=== PATIENT | female | born 1965 | race Caucasian/White ===

== ENCOUNTER 2019-02-19 12:36 | Inpatient (IN) | payer OTHER ==
[~2019-02-19] VITALS: Ht 162.6 cm; Wt 56.7 kg
[~2019-02-19 12:36] MED LIST: CYMBALTA60 MG PO; NORCO 5-325 TA1 EACH PO; POTASSIUM20 PO; TRAZODONE HCL100 MG PO; WELLBUTRIN SR150 MG PO; ZOFRAN ODT4 MG PO
[2019-02-19 12:37] VITALS: BP 121/92
[2019-02-19 13:10] LABS: ABSOLUTE NEUTROPHILS 4.4 thou/uL (1.4-8.2); BASOPHILS 0.7 % (0.0-2.0); EOSINOPHILS 0.4 % (0.0-3.0); HEMATOCRIT 40.5 % (37.0-47.0); LYMPHOCYTES 20.4 % (24.0-44.0); MCH 34.6 pg (26.0-34.0); MCHC 34.6 g/dL (28.0-37.0); MCV 99.9 fL (80.0-100.0); MONOCYTES 6.6 % (1.0-8.0); PLATELET COUNT 172 thou/uL (150-400); POLYS 71.9 % (36.0-66.0); RBC 4.05 mil/uL (4.20-5.00); RDW 12.2 % (10.5-14.5); WBC 6.1 thou/uL (4.0-11.0)
[2019-02-19 13:21] LABS: CALCIUM 9.7 mg/dL (8.5-10.1); CREATININE 0.7 mg/dL (0.6-1.0); POTASSIUM 4.1 mmol/L (3.5-5.1)
[2019-02-19 13:28] LABS: ALBUMIN 3.8 g/dL (3.4-5.0); TOTAL BILIRUBIN 0.5 mg/dL (<0.1-1.0)
--- NOTE | 2019-02-19 13:55 | EKG ---
[place] [address] [facility] [place] [address] ELECTROCARDIOGRAM REPORT Name: JAYSON WOLF [id number] ������������������ Admission: 02/19/19 ������������������ Attend Phys: Discharge: ������������������ Date of : 61 Report #: [id number] ����������������������������������������������������������������� [id number] THIS REPORT FOR: //name// [facility] ED Test Date: 2019-02-19 Test Time: 13:11:25 Pat Name: JAYSON WOLF Department: Room: Gender: F Tier In: : 1965 Requested By: Quyen Tejada Order Number: [id number] MD: Familia Ulloa Measurements Intervals [place] Rate: 109 P: 36 CA: 136 QRS: 47 QRSD: 95 T: 22 QT: 339 QTc: 457 Interpretive Statements Sinus tachycardia Probable left atrial enlargement Abnormal inferior Q waves No previous ECG available for comparison Electronically Signed On 02-19-2019 13:54:48 CDT by Familia Ulloa [email or web address] ��������������������������������������������� <ELECTRONICALLY SIGNED> ���������������������������������������� By: Familia Ulloa MD ��������������������������������������������� 02/19/19 1354 1311 1311 Familia Ulloa MD /MARLENE
[2019-02-19 15:24] LABS: AMP/METHAMP Negative (Negative); BARBITURATES Negative (Negative); BENZODIAZEPINES Negative (Negative); COCAINE Negative (Negative); METHADONE Negative (Negative); OPIATES Negative (Negative); PCP Negative (Negative)
[2019-02-19 16:45] LABS: TSH 0.703 uIU/mL (0.358-3.740)
[2019-02-19 16:46] VITALS: BP 133/99
[2019-02-19 17:05] VITALS: BP 128/86
[2019-02-19 17:50] VITALS: BP 167/84
[2019-02-19 19:25] VITALS: BP 126/88
[2019-02-20 03:35] VITALS: BP 115/86
--- NOTE | 2019-02-20 03:49 | NUR ---
PATIENT ALERT AND ORIENTED X4. DENIES PAIN. CWAH SCORES HAVE BEEN UNDER 9 MOST OF NIGHT. ATIVAN PO GIVEN X1. NO N/V NOTED, DENIES H/A OR ANY AUDIBLE OR VISUAL PROBLEMS. SLEPT MOST OF NIGHT.
[2019-02-20 06:06] LABS: HEMATOCRIT 34.2 % (37.0-47.0); MCH 34.2 pg (26.0-34.0); MCHC 33.7 g/dL (28.0-37.0); MCV 101.4 fL (80.0-100.0); RBC 3.37 mil/uL (4.20-5.00); RDW 12.4 % (10.5-14.5); WBC 4.8 thou/uL (4.0-11.0)
[2019-02-20 06:07] LABS: HEMOGLOBIN 11.5 gm/dL (12.0-15.0)
[2019-02-20 06:19] LABS: CALCIUM 8.5 mg/dL (8.5-10.1); CREATININE 0.5 mg/dL (0.6-1.0); MAGNESIUM 1.7 mg/dL (1.8-2.4); POTASSIUM 3.5 mmol/L (3.5-5.1)
[2019-02-20 07:50] VITALS: BP 138/91
[2019-02-20 11:09] VITALS: BP 136/99
--- NOTE | 2019-02-20 14:34 | NUR ---
ASSUMED PATIENT CARE AT 0715. A&OX4. LAST CIWA SCORE WAS 9. PATIENT TAKING PO ATIVAN OVER IV, STATES IT LASTS LONGER. INCONTINENT OF BOWEL IN THE BATHROOM. PATIENT TEARFUL WITH SIGNIFICANT OTHER. PSYCH ROUNDED TODAY AND CHANGED MED DOSES. PATIENT WAS PREVIOUSLY SOBER FOR 7 YEARS AND WOULD LIKE TO GET SOBER AGAIN. BED ALARM ON. ABLE TO MAKE NEEDS KNOWN. WORKING TOWARDS GOALS.
[2019-02-20 16:50] VITALS: BP 143/100
[2019-02-20 19:56] VITALS: BP 159/120
[2019-02-21 03:59] VITALS: BP 137/103
[2019-02-21 05:48] LABS: CALCIUM 8.4 mg/dL (8.5-10.1); CREATININE 0.5 mg/dL (0.6-1.0); MAGNESIUM 1.9 mg/dL (1.8-2.4); PHOSPHORUS 1.9 mg/dL (2.5-4.9); POTASSIUM 3.3 mmol/L (3.5-5.1)
--- NOTE | 2019-02-21 06:26 | NUR ---
PT AMBULATING TO BATHROOM WITH STANDBY ASSIST AND IS TOLERATING FAIR. DENIES PAIN. ATIVAN GIVEN FOR AGITATION. RESTING COMFORTABLY. NO NEEDS VOICED. CALL LIGHT WITHIN REACH. WILL CONTINUE TO PROVIDE FREQUENT OBSERVATION.
[2019-02-21 07:30] VITALS: BP 119/87
[2019-02-21 11:04] VITALS: BP 122/85
[2019-02-21 15:15] VITALS: BP 139/101
--- NOTE | 2019-02-21 15:55 | NUR ---
ASSUMED PATIENT CARE AT 0715. A&OX4 BUT HAS SOME SLIGHT CONFUSION. CIWAS HAVE BEEN FROM 4-9 TODAY. ATIVAN GIVEN. PATIENT STATED "WHY DO I HAVE TO STAY IF THE DOCTOR SAID I COULD GO?". PATIENT WAS INFORMED THAT THEY WOULD NOT BE DISCHARGED UNTIL TOMORROW OR THE NEXT DAY. PATIENT HAS NOT BEEN USING THE CALL LIGHT. BED ALARM ON. PATIENT VERY UNSTEADY. PATIENT SLOWLY PROGRESSING TOWARDS GOALS.
[2019-02-21 20:00] VITALS: BP 153/111
[2019-02-22 04:00] VITALS: BP 113/76
[2019-02-22 07:27] VITALS: BP 107/70
[2019-02-22 07:30] VITALS: BP 107/70
--- NOTE | 2019-02-22 08:00 | NUR ---
PT AMBULATING TO BATHROOM WITH STANDBY ASSIST AND IS TOLERATING FAIR. DENIES PAIN. RESTING COMFORTABLY. NO NEEDS VOICED. CALL LIGHT WITHIN REACH. WILL CONTINUE TO PROVIDE FREQUENT OBSERVATION.
[2019-02-22 11:30] VITALS: BP 125/90
--- NOTE | 2019-02-22 12:10 | NUR ---
ASSESSMENT: CM REVIEWED CHART AND MET WITH PATIENT AT THE BEDSIDE. PT WAS ADMITTED WITH ETOH WITHDRAWAL. PT REPORTS SHE CURRENTLY IS LIVING WITH HER BOYFRIEND IN A HOUSE. PT REPORTS A COUPLE OF STEPS TO ENTER THE HOME AND NO STEPS ONCE INSIDE. PT REPORTS SHE IS FULLY INDEPENDENT WITH ADLS AND AMBULATION. PT HAS A LONG HX OF ALCOHOL ABUSE AND REPORTS SHE HAD BEEN TO AN INPATIENT PSYCHIATRIC FACILITY TWICE WHILE LIVING IN [place] AND LAST TIME WAS ABOUT 1996. SHE STATES THAT SHE SEES AN OUTPATIENT PSYCHIAITRIST HERE IN BUT CANNOT RECALL THEIR NAME AT THIS TIME. PT REPORTS SHE HAS TRIED AA BEFORE AND WANTS TO GO TO AA ONCE DISCHARGED. CM PROVIDED PATIENT WITH ALCOHOL ABUSE RESOURCE SHEET. PT REPORTS NO FURTHER NEEDS FROM CM AT THIS TIME. CM WILL CONTINUE TO FOLLOW.
[2019-02-22 15:21] VITALS: BP 130/89
--- NOTE | 2019-02-22 18:30 | NUR ---
PATIENT CONT ON CIWA PRECAUTION. SHE HAS HAD ATIVAN THROUGH THE DAY TO CONTROL SYMPTOMS. SHE DENIES PAIN. AMBULATES WITH STAND BY ASSIST TO THE BATHROOM. SHE IS ALERT ORIENTED X4. WILL CONT TO MONITOR AND ASSIST NEEDED.
[2019-02-22 20:17] VITALS: BP 142/91
[2019-02-23 03:52] VITALS: BP 128/92
--- NOTE | 2019-02-23 06:42 | NUR ---
FOLLOWING POC FOR CIWA. CIWA'S AVERAGING 12-13, AND GIVING ORAL AND IV MEDICATIONS TO HELP WITH THE TREMORS AND WITHDRAW. PT CALLS APPROPRIATELY WITH CALL LIGHT. PT HAD A BOUT OF STRESS INCONTINENCE, NOC AND CASING CREW PUSHER CHANGED PT GOWN, CLEANED FEET AND PUT NEW SKIDPROOF SOCKS ON. VSS, AND HOURLY ROUNDING.
[2019-02-23 07:38] VITALS: BP 107/76
--- NOTE | 2019-02-23 10:44 | NUR ---
care of pt assumed this am @ ~0700. pt noted to be awake as she had just returned [place]. pt noted to be drowsy this am. denies soa, no pain and no n/v/d. pt w/ a poor to fair appetite for breakfast, menu given such that she can select a meal that appeals to her for lunch and dinner. pt denies wanting to sit in her chair for breakfast, but prefers the bed. pt noted to have a balanced, coordinated, but unsteady gait to the bthrm, use of gait belt and walker.
[2019-02-23 11:37] VITALS: BP 110/86
[2019-02-23 15:51] VITALS: BP 134/89
[2019-02-23 19:40] VITALS: BP 139/93
[2019-02-24 05:32] VITALS: BP 135/92
--- NOTE | 2019-02-24 06:14 | NUR ---
POC WITH CIWA ON Q4 BASIS. CIWA'S AVERAGING 10-14. ANIEXTY AND TREMORS ARE FAIRLY INTENSE. PT REFUSED SHOWER BUT ACCEPTED HAVING HER HAIR WASHED. POC WITH IVF AND HOURLY ROUNDING. PT STATES NO N/V.
[2019-02-24 07:53] VITALS: BP 120/83
[2019-02-24 11:28] VITALS: BP 123/85
[2019-02-24 16:06] VITALS: BP 146/103
[2019-02-24 19:07] VITALS: BP 127/82
--- NOTE | 2019-02-24 19:42 | NUR ---
care of pt assumed this am @ ~0700. pt verbalized that she is having a better day today than yesterday. pt is anticipating a discharge tomorrow. pt w/ increase appetite for food today. ivf's still infusing, much to the pt's dislike (dt the increased need to walk to the bthrm numerous times a day and noc). pt offered a shower but refused today. pt offered ambulation in the hallways but refused. pt visited by her boyfriend this afternoon.
[2019-02-25 03:47] VITALS: BP 111/76
--- NOTE | 2019-02-25 06:44 | NUR ---
PATIENT IS ALERT AND ORIENTED. PATIENT IS UP TIMES ONE. PATIENT IS CONTIENT. CIWA OF 3. PATIENT IS ROOM AIR. PATIENT DENIES PAIN. PATIENT IS PENDING POSSIBLE DC. PATIENT IS RESTING COMFORTABLY IN BED. WCM. PATIENT IS PROGRESSING TO GOALS. LBM WAS THE 5TH.
[2019-02-25 08:48] VITALS: BP 126/82
[2019-02-25 10:46] VITALS: BP 126/82
--- NOTE | 2019-02-25 11:30 | NUR ---
Assumed pt care this am, pt is stable and a & o x 4. Able to walk from the bed to the toilet. Uses call light appropriately. CIWA of 2 was noted upon this documentation. Pt is progressing well towards goals. DC orders in and instructions given. IV removed. Awaiting for significant other to citrus picker the pt.
--- NOTE | 2019-02-25 18:12 | HC ---
[facility] [place] [address] CONSULTATION Name: JAYSON WOLF Room #: 359-P [facility] M.R.#: [id number] Admission: 02/19/19 ������������������ Attend Phys: Randolph Valerio MD Discharge: 02/25/19 ������������������ Date of : 61 Report #: [id number] THIS REPORT FOR: //name// CC: MARY physician/PCP Randolph Valerio IDENTIFICATION: Psychiatric consultation is requested for alcohol withdrawal and depression. HISTORY OF PRESENT ILLNESS: The patient is a 54-year-old , unemployed female with a past history of alcohol dependence. She had been sober for 5-7 years and then relapsed a few months ago in the context of several stressors. Her and father had and she had moved to [place] to be closer to her mom, but that mom was moved into assisted living facility and the patient was not able to afford psychiatric treatment. She relapsed on alcohol. She has moved back to the [place] area and living with a boyfriend who also drinks heavily. The patient is motivated for sobriety and presented to the hospital with alcohol withdrawal symptoms, requesting treatment. ALLERGIES: NUBAIN. MEDICATIONS: Reviewed and include Cymbalta 120 mg daily, Wellbutrin 150 mg twice daily, trazodone 100 mg at bedtime and Ativan as needed according to the [facility] protocol. Of note, however, the patient had not been on the trazodone, Wellbutrin or Cymbalta for many months prior to admission to the hospital. PAST MEDICAL HISTORY: Transaminitis and gastroenteritis. FAMILY HISTORY: Noncontributory. SOCIAL HISTORY: , currently living with a boyfriend who drinks 6-9 beers per night. The patient denies tobacco use. She is currently unemployed and previously worked as an ER physician. MENTAL STATUS EXAMINATION: Tremulous, pleasant, cooperative, good eye contact. Speech regular rate and rhythm. Thought process linear, logical and coherent. No hallucinations or delusions. No suicidal or homicidal ideation. Affect dysthymic. Alert and oriented x 3. Insight and judgment good. DIAGNOSES: Alcohol dependence and major depressive disorder, recurrent, severe without psychosis. PLAN: Given that it has been many months since she has been on her antidepressants, we will lower the doses of her meds. We will start the Cymbalta at 30 mg daily and the Wellbutrin at 100 mg twice daily. She had contact with a prior psychiatrist and plans to call on Friday to schedule an appointment. [address] [address] CONSULTATION Name: JAYSON WOLF Room #: 359-P [facility].#: [id number] Admission: 02/19/19 ������������������ Attend Phys: Randolph Valerio MD Discharge: 02/25/19 ������������������ Date of : 61 Report #: [id number] I agree with the alcohol withdrawal protocol. Once the patient is detoxed, she is agreeable to a trial of naltrexone 50 mg at bedtime, which can be prescribed upon discharge. Thank you for this consultation. We will follow up as needed. Please contact us with any urgent questions or concerns. ��������������������������������������������� <ELECTRONICALLY SIGNED> ���������������������������������������� By: Rocio Hodges MD ��������������������������������������������� 02/25/19 1812 1311 0337 Brittany Phillips MD /nt
== END 2019-02-25 12:37 | disposition home or self-care (01) | DRG 897 ==
LOC: ER 12:36 → EROBS 14:53 → 3W 14:53
PROVIDERS: Nurse Practitioner Family; ADMIT Internal Medicine
DX: F10.239 Alcohol dependence with withdrawal, unspecified (principal); F33.9 Major depressive disorder, recurrent, unspecified; R25.1 Tremor, unspecified; R00.0 Tachycardia, unspecified; Z79.899 Other long term (current) drug therapy; Z88.8 Allergy status to other drugs, medicaments and biological substances
CPT/HCPCS: 10879